=== PATIENT | female | born 1960 | race Caucasian/White ===

== ENCOUNTER 2016-12-30 15:04 | Emergency (ER) | payer OTHER ==
[~2016-12-30] VITALS: Ht 160 cm; Wt 65.0 kg
[~2016-12-30 15:04] MED LIST: ACET325 PO; IBUP400T20 PO; OXYC-360 PO
[2016-12-30 15:14] VITALS: BP 151/82; PULSE 86; RESP 19; TEMP 99.3; O2SAT 96
[2016-12-30] MEDS ORDERED: MAGN100T2 PO (15:19)
[2016-12-30] MEDS ORDERED: CYAN100025 SL (15:19)
[2016-12-30] MEDS ORDERED: SODIUM CHLORIDE 0.9% FLUSH 10 ML FLUSH IV FLUSH PRN (15:45)
[2016-12-30] MEDS ORDERED: SODIUM CHLOR 0.9% 1000 ML INJ 1,000 ML IV SCH (15:54)
[2016-12-30] MEDS ORDERED: MORPHINE SULFATE 4 MG/ML INJ IV PUSH ONE (16:00)
[2016-12-30] MEDS ORDERED: ONDANSETRON HCL 4 MG/2 ML VIAL IVP ONE (16:00)
--- NOTE | 2016-12-30 16:01 | PD ---
HPI Chief Complaint: Abdominal Pain Time Seen by Provider: 15:58 Travel History International Travel<30 days: No Contact w/Intl Traveler<30days: No Traveled to known affect area: No History of Present Illness HPI Patient comes in complaining of epigastric abdominal pain has been constant since first 11:00 this morning. Patient describes pain is a burning/cramping pain. Patient states it does wax and wane but does not go away completely. Patient states pain began while she was drinking her kale shake. Denies any radiation of the pain. Patient reports that she did vomit that was nonbloody and nonbilious. Denies any chest pain, shortness of breath, neck pain, back pain, loss or change in bowel or bladder, numbness tingling anywhere, or previous episodes like this. Patient denies any known medical history. Patient reports only abdominal surgery were laparoscopic for ovarian cyst and C- section. PFS Past Medical History Medical History: Denies Significant Hx Cancer: No Diabetes: No Diminished Hearing: No Glaucoma: No Hepatitis: No Hiatal Hernia: No Hypertension: Yes (have at times) Thyroid Disease: No Tetanus Vaccination: > 5 Years ?: Not Menopausal: Yes Past Surgical History Section: Yes Gynecologic Surgery: Yes ( laparoscopy) Other Surgery: Yes (FATTY TUMOR REMOVED) Social History Alcohol Use: Yes (OCC) Tobacco Use: No Substance Use: No Allergies-Medications (Allergen,Severity, Reaction): Coded Allergies: No Known Allergies (Verified , 12/30/16) Reported Meds & Prescriptions Reported Meds & Active Scripts Active Zofran Odt (Ondansetron Odt) 4 Mg Tab 4 Mg SL Q6HR PRN Reported B-12 (Cyanocobalamin) 1,000 Mcg Subl 1,000 Mcg SL DAILY Magnesium Citrate 100 Mg Tab 100 Mg PO DAILY PRN Review of Systems Except as stated in HPI: all other systems reviewed are Neg Physical Exam Narrative GENERAL: Well-developed, well nourished, in no acute distress, and non-ill appearing. SKIN: Focused skin assessment warm and dry. HEAD: Atraumatic. Normocephalic. EYES: Pupils equal and round. EOMI. No scleral icterus. No injection or drainage. ENT: No nasal bleeding or discharge. Mucous membranes pink and moist. NECK: Trachea midline. No JVD. Supple. No nuclear rigidity. CARDIOVASCULAR: Regular rate and rhythm. No murmur appreciated. RESPIRATORY: No accessory muscle use. No respiratory distress. Clear to auscultation. Breath sounds equal bilaterally. GASTROINTESTINAL: Abdomen soft, epigastric tenderness, nondistended. Hepatic and splenic margins not palpable. Normal bowel sounds 4. No pulsatile mass. MUSCULOSKELETAL: No obvious deformities. No clubbing. No cyanosis. No edema. Full range of motion. NEUROLOGICAL: Awake and alert. No obvious cranial nerve deficits. Motor grossly within normal limits. Normal speech. PSYCHIATRIC: Appropriate mood and affect; insight and judgment normal. Data Data Last Documented VS Vital Signs Date Time Temp Pulse Resp B/P Pulse Ox O2 Delivery O2 Flow Rate FiO2 12/30/16 16:18 72 18 164/84 95 Room Air 12/30/16 15:14 99.3 Orders Complete Blood Count With Diff (12/30/16 15:31) Comprehensive Metabolic Panel (12/30/16 15:31) Lipase (12/30/16 15:31) Iv Access Insert/Monitor (12/30/16 15:31) Sodium Chloride 0.9% Flush (Ns Flush) (12/30/16 15:45) Magnesium (Mg) (12/30/16 15:54) Prothrombin Time / Inr (Pt) (12/30/16 15:54) Act Partial Throm Time (Ptt) (12/30/16 15:54) Ecg Monitoring (12/30/16 15:54) Oximetry (12/30/16 15:54) Morphine Inj (Morphine Inj) (12/30/16 16:00) Ondansetron Inj (Zofran Inj) (12/30/16 16:00) Sodium Chlor 0.9% 1000 Ml Inj (Ns 1000 M (12/30/16 15:54) Electrocardiogram (12/30/16 16:01) Labs Laboratory Tests Test 12/30/16 15:50 White Blood Count 9.7 TH/MM3 Red Blood Count 4.50 MIL/MM3 Hemoglobin 12.7 GM/DL Hematocrit 39.1 % Mean Corpuscular Volume 86.9 FL Mean Corpuscular Hemoglobin 28.2 PG Mean Corpuscular Hemoglobin 32.4 % Concent Red Cell Distribution Width 15.1 % Platelet Count 347 TH/MM3 Mean Platelet Volume 8.4 FL Neutrophils (%) (Auto) 71.0 % Lymphocytes (%) (Auto) 21.4 % Monocytes (%) (Auto) 4.9 % Eosinophils (%) (Auto) 2.6 % Basophils (%) (Auto) 0.1 % Neutrophils # (Auto) 6.9 TH/MM3 Lymphocytes # (Auto) 2.1 TH/MM3 Monocytes # (Auto) 0.5 TH/MM3 Eosinophils # (Auto) 0.3 TH/MM3 Basophils # (Auto) 0.0 TH/MM3 CBC Comment DIFF FINAL Differential Comment Prothrombin Time 10.3 SEC Prothromb Time International 0.9 RATIO Ratio Activated Partial 26.2 SEC Thromboplast Time Sodium Level 143 MEQ/L Potassium Level 3.6 MEQ/L Chloride Level 107 MEQ/L Carbon Dioxide Level 27.3 MEQ/L Anion Gap 9 MEQ/L Blood Urea Nitrogen 13 MG/DL Creatinine 0.92 MG/DL Estimat Glomerular Filtration 64 ML/MIN Rate Random Glucose 85 MG/DL Calcium Level 8.9 MG/DL Magnesium Level 2.1 MG/DL Total Bilirubin 0.4 MG/DL Aspartate Amino Transf 12 U/L (AST/SGOT) Alanine Aminotransferase 19 U/L (ALT/SGPT) Alkaline Phosphatase 52 U/L Total Protein 6.6 GM/DL Albumin 3.3 GM/DL Lipase 181 U/L MDM Medical Decision Making Medical Screen Exam Complete: Yes Emergency Medical Condition: Yes Interpretation(s) EKG reviewed by Dr. Santamaria shows sinus rhythm with a ventricular rate of 84. No STEMI. Differential Diagnosis Gastritis, pancreatitis, nausea and vomiting, abdominal pain, other Narrative Course 1705 patient reassessed found to be resting in bed in no acute process. Reports symptoms have resolved. Patient reports that she's had 2 previous similar episodes over the past month, but has not been evaluated for this previously. Abdomen reassessed found to be nontender, nondistended, without guarding. Patient looks great, non-ill appearing but does appear slightly volume depleted without evidence of significant dehydration. The patient was given IVF in the Emergency Department for rehydration. The patient responded well and is tolerating fluids and appears hydrated. I suspect viral etiology versus possible gastritis by history and exam. There are normal active bowel sounds without any masses, distension, or significant tenderness. There was no evidence of an acute, surgical abdomen at this time. There was no clinical evidence to support cholecystitis/cholelithiasis, pancreatitis, perforation of gastric ulcer, colitis, diverticulitis, peritonitis, obstruction, volvulus, early appendicitis, or hernial incarceration or strangulation at this time. There was no evidence to support vascular pathology such as AAA, mesenteric ischemia. There was also no clinical evidence by history, exam or risk factors to suggest atypical presentation of cardiac disease such as ACS, AMI or atypical angina. No evidence to suggest genitourinary etiology as well. During the course of the ED visit, the patient noted improvement. Clinical picture was discussed with the patient, as well as plan of care. The patient was instructed to follow up with their physician. Abdominal pain warnings were discussed with the patient. The patient is to return if worsens, pain worsens or changes, develop fever, inability to tolerate fluids with or without vomiting, increased vomiting, blood in vomit, unable to establish follow up or as needed. The patient agrees with plan. The patient was tolerating fluids at time of discharge. Patient in no obvious distress upon re-evaluation. All pertinent laboratory result(s) discussed with patient. Discussed patient with Dr. Santamaria prior to discharge, who is in agreement with plan of care and disposition. Patient was asked if they wanted to speak to my attending, which the patient did not wish to do at this time. Any questions/concerns in reference to patient diagnosis/ condition discussed and clarified prior to patient's discharge. Reinforced sheer importance of close follow up with patient's primary physician or primary care clinic. Instructed patient to return to ED immediately, if symptoms return/ worsen. Pt showed understanding of above instructions. Further instructions and recommendations were detailed in discharge paperwork. Pt ambulated without difficulty out of ED at discharge. Diagnosis Primary Impression: Epigastric abdominal pain Patient Instructions: Abdominal Pain (ED), General Instructions Additional Instructions: Follow-up with your primary care physician and/or GI this week for reevaluation. Take all medication as prescribed. Return to the emergency department if symptoms get worse. Med/Other Pt SpecificInfo: Prescription(s) given Scripts Ondansetron Odt (Zofran Odt)4 Mg Tab4 Mg SL Q6HR PRN (Nausea/Vomiting) #12 TAB Ref 0 Prov:Marivel Santamaria DO 12/30/16 Disposition: 01 DISCHARGE HOME Condition: Stable Dante Azar December 30, 2016 16:01
[2016-12-30 16:06] LABS: AUTOMATED NEUTROPHIL # 6.9 TH/MM3 (1.8-7.7); BASOPHIL % 0.1 % (0.0-2.0); EOSINOPHIL # 0.3 TH/MM3 (0-0.4); EOSINOPHIL % 2.6 % (0.0-4.0); HEMATOCRIT 39.1 % (35.0-46.0); HEMO FLAGS DIFF FINAL; LYMPH % 21.4 % (9.0-44.0); LYMPHOCYTE # 2.1 TH/MM3 (1.0-4.8); MEAN CELL VOLUME 86.9 FL (80.0-100.0); MEAN CORPUSCULAR HEMOGLOBIN 28.2 PG (27.0-34.0); MEAN CORPUSCULAR HGB CONC 32.4 % (32.0-36.0); MONO % 4.9 % (0.0-8.0); PLATELET COUNT 347 TH/MM3 (150-450); RED CELL DISTRIBUTION WIDTH 15.1 % (11.6-17.2); WHITE BLOOD COUNT 9.7 TH/MM3 (4.0-11.0)
[2016-12-30 16:07] VITALS: O2SAT 98
[2016-12-30 16:18] VITALS: BP 164/84; PULSE 72; RESP 18; O2SAT 95
[2016-12-30 16:19] LABS: APTT (PATIENT) 26.2 SEC (24.3-30.1); INTERNATIONAL NORMALIZED RATIO 0.9 RATIO; PROTHROMBIN TIME - PATIENT 10.3 SEC (9.8-11.6)
[2016-12-30 16:26] LABS: ALT (GPT) 19 U/L (10-53); ANION GAP 9 MEQ/L (5-15); AST (GOT) 12 U/L (15-37); BICARBONATE 27.3 MEQ/L (21.0-32.0); BLOOD UREA NITROGEN 13 MG/DL (7-18); CHLORIDE 107 MEQ/L (98-107); GLOMERULAR FILTRATION RATE 64 ML/MIN (>89); POTASSIUM 3.6 MEQ/L (3.5-5.1); SODIUM (NA) 143 MEQ/L (136-145)
[2016-12-30 16:29] LABS: ALKALINE PHOSPHATASE 52 U/L (45-117); TOTAL BILIRUBIN ADULT 0.4 MG/DL (0.2-1.0)
[2016-12-30] MEDS ORDERED: ZOFR4TAB3 SL (17:12)
--- NOTE | 2016-12-31 09:33 | EKG ---
Date Performed: 12/30/2016 Time Performed: 16:15:45 PTAGE: 56 years EKG: Sinus rhythm BORDERLINE LEFT AXIS DEVIATION NONSPECIFIC T-WAVE ABNORMALITY BORDERLINE ECG PREVIOUS TRACING : 07/17/2010 13.40 DOCTOR: Sean Grier Interpretating Date/Time 12/31/2016 09:31:31
== END 2016-12-30 17:41 | disposition home or self-care (01) ==
LOC: NEPE 15:04
DX: R10.13 Epigastric pain (principal); R11.10 Vomiting, unspecified; R94.31 Abnormal electrocardiogram [ECG] [EKG]; I10 Essential (primary) hypertension
CPT/HCPCS: 80053; 83690; 83735; 85025; 85610; 85730; 93005; 96361; 96374; 96375; 99284; J2270; J2405; J7030